=== PATIENT | male | born 1975 | race Caucasian/White ===

== ENCOUNTER 2018-05-16 01:27 | Emergency (ER) | payer MEDICAID ==
[2018-05-16] MEDS: BENOXINATE/FLUORESCEIN DROPS RIGHT EYE (05:17)
[2018-05-16] MEDS: OPHTHALMIC IRRIG SOLUTION 120 ML RIGHT EYE (05:29)
[2018-05-16] MEDS: ERYTHROMYCIN 1 GM OPH OINT RIGHT EYE (06:18)
== END 2018-05-16 07:10 | disposition home or self-care (01) ==
LOC: FTE 01:27
DX: H10.31 Unspecified acute conjunctivitis, right eye (principal)
CPT/HCPCS: 99283; Z7610